=== PATIENT | male | born 1985 | race Caucasian/White ===

== ENCOUNTER 2017-04-07 07:00 | Day surgery (SDC) | payer OTHER ==
[~2017-04-07] VITALS: Ht 185.4 cm; Wt 115.0 kg
[2017-04-07] MEDS ORDERED: LACTATED RINGERS 1,000 ML IV SCH (07:18)
[2017-04-07] MEDS ORDERED: ZANTREX PO (07:28)
[2017-04-07 07:29] VITALS: BP 145/91
[2017-04-07] MEDS ORDERED: LIDOCAINE 1%, 2ML SQ PRN (07:30)
[2017-04-07] MEDS ORDERED: FENTANYL PF 250 MCG/5ML ONE (07:42)
[2017-04-07] MEDS ORDERED: MIDAZOLAM 1 MG/ML, 2ML ONE (07:42)
[2017-04-07] MEDS ORDERED: ONDANSETRON 2MG/ML, 2ML ONE (07:44)
[2017-04-07] MEDS ORDERED: PROPOFOL 10 MG/ML, 20ML ONE (07:44)
[2017-04-07] MEDS ORDERED: DEXAMETHASONE 4 MG/ML, 1ML ONE (07:44)
[2017-04-07] MEDS ORDERED: OXYMETAZOLINE NASAL SPRAY 0.05%, 15ML ONE (07:59)
[2017-04-07] MEDS ORDERED: LIDOCAINE/PF 1%-EPI 1:200K, 30ML ONE (08:00)
[2017-04-07] MEDS ORDERED: HYDROcodone/APAP 7.5-325MG/15ML UDC ONE (08:29)
[2017-04-07] MEDS ORDERED: MEPERIDINE/PF 25MG/0.5ML IVPush PRN (08:30)
[2017-04-07] MEDS ORDERED: FENTANYL PF 100 MCG/2ML IV PRN (08:30)
[2017-04-07] MEDS ORDERED: ALBUTEROL/IPRATROPIUM 2.5MG/0.5MG, 3 ML NPPB PRN (08:30)
[2017-04-07] MEDS ORDERED: hydrALAzine 20 MG/ML, 1ML IV PRN (08:30)
[2017-04-07] MEDS ORDERED: METOPROLOL 1 MG/ML, 5ML IV PRN (08:30)
[2017-04-07] MEDS ORDERED: HYDROmorphone 1 MG/ML, 1ML IV PRN (08:30)
[2017-04-07] MEDS ORDERED: ACETAMINOPHEN 325 MG TABLET PO PRN (08:30)
[2017-04-07] MEDS ORDERED: HYDROcodone/APAP 7.5-325MG/15ML UDC PO PRN (08:30)
[2017-04-07] MEDS ORDERED: HALOPERIDOL 5 MG/ML IV PRN (08:30)
== END 2017-04-07 09:45 | disposition home or self-care (01) ==
LOC: OUT 07:00
PROVIDERS: ATTEND Otolaryngology
DX: J38.3 Other diseases of vocal cords (principal)
CPT/HCPCS: 31540; 88304; J1100; J2250; J2405; J2704; J3010; J7120; J3490